=== PATIENT | male | born 1965 | race Caucasian/White ===

== ENCOUNTER 2020-03-27 11:14 | Outpatient (REF) | payer OTHER, SELFPAY ==
--- NOTE | 2020-03-27 11:17 | CT_ITS ---
EXAMINATION: CT MAXILLOFACIAL WITHOUT CONTRAST CLINICAL INFORMATION: Deviated nasal septum. COMPARISON: None. TECHNIQUE: Multidetector helical imaging was performed in the axial plane with generation of coronal and sagittal reformatted images. This CT examination was performed using dose optimization techniques as appropriate, variously including the following: *Automated exposure control *Adjustment of mA and/or kV according to patient size (this includes techniques or standardized protocols for targeted exams where dose is matched to indication/reason for exam; i.e. extremities or head) *Use of iterative reconstruction technique DLP: 100 mGy-cm. FINDINGS: There is mild polypoid thickening involving the bilateral inferior frontal sinuses with opacification of the frontoethmoidal recesses. There is mild to moderate polypoid thickening involving the bilateral ethmoid air cells. There is mild circumferential mucosal thickening in the sphenoid sinuses with layering secretions in the dominant right sphenoid sinus. Both sphenoid ostia are opacified. There is mild circumferential lobular mucosal thickening in the maxillary sinuses. The ethmoidal infundibula are narrowed but patent. A polyp is seen in the left middle meatus measuring 1.0 cm. The nasal septum is deviated towards the left anteriorly and towards the right posteriorly with rightward projecting septal spur. The ethmoid roofs are symmetric. The lamina papyracea are intact. The carotid impressions are covered by bone. No maxillary periapical disease is seen. The mastoid air cells and visualized middle ear cavities are well aerated. The orbits are normal. The TMJs are unremarkable. The imaged portions of the brain demonstrate no acute abnormality. CT/CT sinus wo con IMPRESSION: Mild polypoid thickening involving the bilateral inferior frontal sinuses with opacification of the frontoethmoidal recesses. Mild to moderate ethmoid polypoid thickening. Layering fluid in the right sphenoid sinus and opacification of both sphenoid ostia. Mild circumferential mucosal thickening in the maxillary sinuses. Nasal septum deviated towards the left anteriorly and towards the right posteriorly with rightward projecting septal spur.
== END 2020-03-27 11:15 | disposition home or self-care (01) ==
LOC: HO.CT 11:14
PROVIDERS: Visit Provider Otolaryngology
DX: J34.2 Deviated nasal septum (principal); J33.0 Polyp of nasal cavity
CPT/HCPCS: 70486

== ENCOUNTER 2023-04-07 08:00 | Outpatient (RCR) | payer OTHER, SELFPAY | END 2023-04-07 09:30 | disposition home or self-care (01) | LOC: HO.PT 08:00 | PROVIDERS: PCP Internal Medicine; Visit Provider Urology | DX: N39.3 Stress incontinence (female) (male) (principal) | CPT/HCPCS: 97112; 97140; 97161 ==